=== PATIENT | male | born 1965 | race Caucasian/White ===

== ENCOUNTER 2024-09-29 22:36 | Emergency (ER) | payer MEDICAID ==
[~2024-09-29] VITALS: Ht 170.2 cm; Wt 73.0 kg
[2024-09-29 22:46] VITALS: BP 213/124; PULSE 118; RESP 16; TEMP 98.6; O2SAT 98
== END 2024-09-30 02:17 | disposition left against medical advice (07) ==
LOC: ER 22:36
DX: Z00.00 Encounter for general adult medical examination without abnormal findings (principal); F41.9 Anxiety disorder, unspecified
CPT/HCPCS: 93005; 99283